=== PATIENT | male | born 1955 | race American Indian/Alaskan Native ===

== ENCOUNTER 2018-08-17 10:04 | Emergency (ER) | payer SELFPAY ==
[2018-08-17] MEDS ORDERED: ASPIRIN PO ONE (11:55)
[2018-08-17 12:27] LABS: Basophils % (Auto) 0.5 % (0.0-1.8); Eosinophils % (Auto) 0.4 % (0.0-4.3); Hematocrit 44.2 % (35.5-45.6); Hemoglobin 14.7 gm/dl (11.8-15.2); Lymphocytes # (Auto) 1.4 K/mm3 (1.2-5.4); Lymphocytes % (Auto) 19.6 % (13.4-35.0); Mean Corpuscular HGB Conc 33 % (32-34); Mean Corpuscular Hemoglobin 31 pg (28-32); Mean Corpuscular Volume 93 fl (84-94); Monocytes # (Auto) 0.8 K/mm3 (0.0-0.8); Monocytes % (Auto) 10.5 % (0.0-7.3); Platelet Count 198 K/mm3 (140-440); Red Blood Count 4.73 M/mm3 (3.65-5.03); Red Cell Distribution Width 13.2 % (13.2-15.2)
--- NOTE | 2018-08-17 12:40 | Emergency Department Report ---
ED General Adult HPI - General Chief complaint: Pain General Stated complaint: BODY PAIN Time Seen by Provider: 08/17/18 12:13 Source: family Mode of arrival: Ambulatory Limitations: No Limitations - History of Present Illness Initial comments: Patient complains of diffuse body pain for the last 5-6 months. Patient also complains of chest tightness for that timeframe as well. Patient denies any movement of his chest pain is located in the anterior portion of his chest. She does have a history of hypertension and has not taken his medications more than 6 months. Patient denies shortness of breath, cough, headache, abdominal pain. -: Gradual Radiation: non-radiation Severity scale (0 -10): 2 Quality: aching Consistency: constant Improves with: none Worsens with: none Associated Symptoms: denies other symptoms Treatments Prior to Arrival: none - Related Data Previous Rx's Medication Instructions Recorded Last Taken Type amLODIPine [Norvasc] 10 mg PO DAILY #30 tab 08/17/18 Unknown Rx Allergies Allergy/AdvReac Type Severity Reaction Status Date / Time No Known Allergies Allergy Verified 08/17/18 12:21 ED Review of Systems ROS: Stated complaint: BODY PAIN Other details as noted in HPI Comment: All other systems reviewed and negative Constitutional: denies: chills, fever Eyes: denies: eye pain, eye discharge, vision change ENT: denies: ear pain, throat pain Respiratory: denies: cough, shortness of breath, wheezing Cardiovascular: denies: chest pain, palpitations Endocrine: no symptoms reported Gastrointestinal: denies: abdominal pain, nausea, diarrhea Genitourinary: denies: urgency, dysuria Musculoskeletal: denies: back pain, joint swelling, arthralgia Skin: denies: rash, lesions Neurological: denies: headache, weakness, paresthesias Psychiatric: denies: anxiety, depression Hematological/Lymphatic: denies: easy bleeding, easy bruising ED Past Medical Hx - Past Medical History Previous Medical History?: Yes Hx Hypertension: Yes - Surgical History Past Surgical History?: No - Social History Smoking Status: Never Smoker Substance Use Type: None - Medications Home Medications: Home Medications Medication Instructions Recorded Confirmed Last Taken Type amLODIPine [Norvasc] 10 mg PO DAILY #30 tab 08/17/18 Unknown Rx ED Physical Exam - General Limitations: No Limitations General appearance: alert, in no apparent distress - Head Head exam: Present: atraumatic, normocephalic - Eye Eye exam: Present: normal appearance, PERRL, EOMI - ENT ENT exam: Present: mucous membranes moist - Neck Neck exam: Present: normal inspection - Respiratory Respiratory exam: Present: normal lung sounds bilaterally. Absent: respiratory distress, wheezes, rales, rhonchi - Cardiovascular Cardiovascular Exam: Present: regular rate, normal rhythm. Absent: systolic murmur, diastolic murmur, rubs, gallop - GI/Abdominal GI/Abdominal exam: Present: soft, normal bowel sounds. Absent: distended, tenderness - Rectal Rectal exam: Present: deferred - Extremities Exam Extremities exam: Present: normal inspection - Back Exam Back exam: Present: normal inspection - Neurological Exam Neurological exam: Present: alert, oriented X3, CN II-XII intact. Absent: motor sensory deficit - Psychiatric Psychiatric exam: Present: normal affect, normal mood - Skin Skin exam: Present: warm, dry, intact, normal color. Absent: rash ED Course Vital Signs 08/17/18 08/17/18 08/17/18 10:11 11:54 12:20 Temperature 99 F Pulse Rate 97 H Respiratory 18 Rate Blood Pressure 209/123 192/105 190/124 O2 Sat by Pulse 97 Oximetry 08/17/18 08/17/18 08/17/18 12:31 12:38 12:46 Temperature Pulse Rate 73 Respiratory 18 12 Rate Blood Pressure 164/103 164/103 O2 Sat by Pulse 97 96 Oximetry 08/17/18 08/17/18 08/17/18 13:30 13:46 14:00 Temperature Pulse Rate 76 77 74 Respiratory 13 15 10 L Rate Blood Pressure 174/106 174/106 174/106 O2 Sat by Pulse 96 97 98 Oximetry 08/17/18 08/17/18 08/17/18 14:30 15:00 15:30 Temperature Pulse Rate 70 71 79 Respiratory 14 11 L 12 Rate Blood Pressure 174/106 182/107 147/96 O2 Sat by Pulse 99 96 96 Oximetry 08/17/18 15:46 Temperature Pulse Rate 71 Respiratory 16 Rate Blood Pressure 147/96 O2 Sat by Pulse 96 Oximetry ED Medical Decision Making - Lab Data Result diagrams: 08/17/18 12:17 08/17/18 12:17 Lab Results 08/17/18 08/17/18 08/17/18 Range/Units 12:17 12:17 12:17 WBC 7.3 (4.5-11.0) K/mm3 RBC 4.73 (3.65-5.03) M/mm3 Hgb 14.7 (11.8-15.2) gm/dl Hct 44.2 (35.5-45.6) % MCV 93 (84-94) fl MCH 31 (28-32) pg MCHC 33 (32-34) % RDW 13.2 (13.2-15.2) % Plt Count 198 (140-440) K/mm3 Lymph % (Auto) 19.6 (13.4-35.0) % [place] % (Auto) 10.5 H (0.0-7.3) % Eos % (Auto) 0.4 (0.0-4.3) % Baso % (Auto) 0.5 (0.0-1.8) % Lymph # 1.4 (1.2-5.4) K/mm3 [place] # 0.8 (0.0-0.8) K/mm3 Eos # 0.0 (0.0-0.4) K/mm3 Baso # 0.0 (0.0-0.1) K/mm3 Seg Neutrophils % 69.0 (40.0-70.0) % Seg Neutrophils # 5.1 (1.8-7.7) K/mm3 Sodium 140 (137-145) mmol/L Potassium 3.9 (3.6-5.0) mmol/L Chloride 102.1 (98-107) mmol/L Carbon Dioxide 28 (22-30) mmol/L Anion Gap 14 mmol/L BUN 17 (9-20) mg/dL Creatinine 1.0 (0.8-1.5) mg/dL Estimated GFR > 60 ml/min BUN/Creatinine Ratio 17 % Glucose 96 (75-100) mg/dL Calcium 9.1 (8.4-10.2) mg/dL Total Bilirubin 0.30 (0.1-1.2) mg/dL Direct Bilirubin < 0.2 (0-0.2) mg/dL AST 21 (5-40) units/L ALT 18 (7-56) units/L Alkaline Phosphatase 82 (35-129) units/L Troponin T < 0.010 (0.00-0.029) ng/mL Total Protein 8.0 (6.3-8.2) g/dL Albumin 4.2 (3.9-5) g/dL Albumin/Globulin Ratio 1.1 % 08/17/18 Range/Units 14:32 WBC (4.5-11.0) K/mm3 RBC (3.65-5.03) M/mm3 Hgb (11.8-15.2) gm/dl Hct (35.5-45.6) % MCV (84-94) fl MCH (28-32) pg MCHC (32-34) % RDW (13.2-15.2) % Plt Count (140-440) K/mm3 Lymph % (Auto) (13.4-35.0) % [place] % (Auto) (0.0-7.3) % Eos % (Auto) (0.0-4.3) % Baso % (Auto) (0.0-1.8) % Lymph # (1.2-5.4) K/mm3 [place] # (0.0-0.8) K/mm3 Eos # (0.0-0.4) K/mm3 Baso # (0.0-0.1) K/mm3 Seg Neutrophils % (40.0-70.0) % Seg Neutrophils # (1.8-7.7) K/mm3 Sodium (137-145) mmol/L Potassium (3.6-5.0) mmol/L Chloride (98-107) mmol/L Carbon Dioxide (22-30) mmol/L Anion Gap mmol/L BUN (9-20) mg/dL Creatinine (0.8-1.5) mg/dL Estimated GFR ml/min BUN/Creatinine Ratio % Glucose (75-100) mg/dL Calcium (8.4-10.2) mg/dL Total Bilirubin (0.1-1.2) mg/dL Direct Bilirubin (0-0.2) mg/dL AST (5-40) units/L ALT (7-56) units/L Alkaline Phosphatase (35-129) units/L Troponin T < 0.010 (0.00-0.029) ng/mL Total Protein (6.3-8.2) g/dL Albumin (3.9-5) g/dL Albumin/Globulin Ratio % - EKG Data -: EKG Interpreted by Mo EKG shows normal: sinus rhythm Rate: normal - EKG Data Interpretation: other (no ST elevations) - Radiology Data Radiology results: report reviewed Referring Physician: KATTY EUBANKS Patient Name: CARLITO SHEPARD Date of : 1955 Sex: Male Report Date: 2018-08-17 Report Status: Finalized [facility] [address] [place] [address] XRay Report Signed Patient: CARLITO SHEPARD MR#: [id number] : 1955 Acct: [id number] Age/Sex: 63 / M ADM Date: 08/17/18 Loc: ED Attending Dr: Ordering Physician: KATTY EUBANKS MD Date of Service: 08/17/18 Procedure(s): XR chest 1V ap Accession Number(s): [id number] cc: KATTY EUBANKS MD Fluoro Time In Minutes : FINAL REPORT EXAM: XR CHEST 1V AP HISTORY: cough TECHNIQUE: Single, portable chest x-ray. PRIORS: None. FINDINGS: Cardiac and mediastinal silhouette within normal limits. Lungs are normally expanded, with increased interstitial markings and peribronchial thickening centrally. No focal consolidation or apparent pneumothorax. Bony thorax grossly unremarkable. IMPRESSION: 1. Findings which may represent mild vascular congestion versus nonspecific postinflammatory change or bronchitis. Correlate clinically. 2. No acute consolidation. Transcribed By: [facility] Dictated By: JR CUELLAR MD Electronically Authenticated By: JR CUELLAR MD Signed Date/Time: 1699 DD/ 99 TD/TT: 08/17/181699 Critical care attestation.: If time is entered above; I have spent that time in minutes in the direct care of this critically ill patient, excluding procedure time. ED Disposition Clinical Impression: Hypertension, Nonspecific chest pain Disposition: DC-01 TO HOME OR SELFCARE Is pt being admited?: No Does the pt Need Aspirin: No Condition: Stable Instructions: Chest Pain (ED), Hypertension (ED) Additional Instructions: return if worse Prescriptions: amLODIPine [Norvasc] 10 mg PO DAILY #30 tab Referrals: PRIMARY CARE, [Primary Care Provider] - 3-5 Days SHANNON BURGER MD [Staff Physician] - 3-5 Days [facility] [Outside] - 3-5 Days [facility] [Provider Group] - 3-5 Days Time of Disposition: 17:33
[2018-08-17 12:47] LABS: BUN/Creatinine Ratio 17; Blood Urea Nitrogen 17 mg/dL (9-20); Calcium 9.1 mg/dL (8.4-10.2); Hemolysis Index 13
[2018-08-17 12:58] LABS: Alanine Aminotransferase 18 units/L (7-56); Albumin 4.2 g/dL (3.9-5)
[2018-08-17 13:20] LABS: Bilirubin,Direct < 0.2 mg/dL (0-0.2)
--- NOTE | 2018-08-17 17:01 | XRay Report ---
FINAL REPORT EXAM: XR CHEST 1V AP HISTORY: cough TECHNIQUE: Single, portable chest x-ray. PRIORS: None. FINDINGS: Cardiac and mediastinal silhouette within normal limits. Lungs are normally expanded, with increased interstitial markings and peribronchial thickening centrally. No focal consolidation or apparent pneumothorax. Bony thorax grossly unremarkable. IMPRESSION: 1. Findings which may represent mild vascular congestion versus nonspecific postinflammatory change or bronchitis. Correlate clinically. 2. No acute consolidation.
[2018-08-17] MEDS ORDERED: NORVASC PO ONE (17:28)
[2018-08-17 18:38] VITALS: BP 133/78
== END 2018-08-17 18:38 | disposition home or self-care (01) ==
LOC: ED 10:04
DX: R07.89 Other chest pain (principal); I10 Essential (primary) hypertension
CPT/HCPCS: 36415; 71045; 80048; 80074; 84484; 85025; 93005; 93010; 99284

== ENCOUNTER 2019-12-10 11:52 | Emergency (ER) | payer SELFPAY ==
[2019-12-10 13:10] VITALS: BP 183/99
--- NOTE | 2019-12-10 13:15 | Emergency Department Report ---
Chief Complaint: Upper Respiratory Infection Stated Complaint: HEADACHE Time Seen by Provider: 12/10/19 13:10 - HPI History of Present Illness: 64 y/o male comes in comes in for nasal congestion and headache times 3 days. No PMH no meds. - Exam Vital Signs: Vital Signs 12/10/19 13:01 Temperature 97.6 F Pulse Rate 79 Respiratory 20 Rate Blood Pressure 183/99 O2 Sat by Pulse 97 Oximetry Physical Exam: Axo times 3 NAD HEENT: nasal turbinates are enlarges no purulent discharge MSE screening note: Focused history and physical exam performed. Due to findings the following was ordered: 64 y/o male comes in comes in for nasal congestion and headache times 3 days. No PMH no meds. Recommend Over the counter flonase and claritin 10 mg nahun. Follow up with a Primary Care provider. ED Disposition for MSE Clinical Impression: Nasal congestion with rhinorrhea Disposition: Z- MED SCREENING EXAM-LEFT Condition: Stable Additional Instructions: Recommend Over the counter flonase and claritin 10 mg nahun. Follow up with a Primary Care provider. Referrals: ALLIE SANTANA MD [Staff Physician] - 3-5 Days
== END 2019-12-10 15:00 | disposition home or self-care (01) ==
LOC: ED 11:52
DX: R09.81 Nasal congestion (principal); J34.89 Other specified disorders of nose and nasal sinuses